=== PATIENT | male | born 1950 | race Caucasian/White ===

== ENCOUNTER 2017-11-15 04:43 | Emergency (ER) | payer SELFPAY ==
[~2017-11-15] VITALS: Ht 170.2 cm; Wt 82.3 kg
[~2017-11-15 04:43] MED LIST: ALEVE220 M2 PO; CENTRUM SILVER1 EAC3 PO; ERGOCALCIF50000 UNIT PO
[2017-11-15 04:47] VITALS: BP 176/106
[2017-11-15] MEDS ORDERED: FLEXERIL10 MG PO (05:04)
[2017-11-15] MEDS ORDERED: NAPROSYN500 MG PO (05:04)
== END 2017-11-15 05:37 | disposition home or self-care (01) ==
LOC: EME 04:43
DX: M54.5 Low back pain (principal); G89.29 Other chronic pain; F17.200 Nicotine dependence, unspecified, uncomplicated
CPT/HCPCS: 99281; 99283